=== PATIENT | male | born 1980 | race African-American/Black ===

== ENCOUNTER 2016-10-25 23:38 | Emergency (ER) | payer SELFPAY ==
[~2016-10-25] VITALS: Ht 188 cm; Wt 73.4 kg
[2016-10-26 00:24] VITALS: TEMP 36.8; Ht 188 cm; Wt 73.4 kg
[2016-10-26] MEDS ORDERED: CEFTRIAXONE SOD 350MG/ML 1 GM VIAL IM ONE (01:00)
[2016-10-26] MEDS ORDERED: AZITHROMYCIN 250 MG TAB PO ONE (01:00)
[2016-10-26 01:05] VITALS: BP 112/65; PULSE 76; O2SAT 96
--- NOTE | 2016-10-27 02:34 | EMERGENCY ROOM VISIT NOTE ---
History First contact with patient: 00:31 Chief Complaint: SORETHROAT Stated Complaint: SORETHROAT,INFECTION History of Present Illness The patient is a 35 year old male who presents to the Emergency Room with complaints of sore throat symptoms for the past 3 days. The patient states that he was contacted by a female that he had oral intercourse with, and was informed that she tested positive for gonorrhea today. The patient did not have insertional intercourse with this female, but he is now concerned for a gonorrheal pharyngitis. He does not have fever or chills. No drainage or discharge from the mouth. He does not have other complaints and rates his discomfort a 5/10. Review of Systems More than 10 systems were reviewed and otherwise negative with the exception of history of present illness. Past Medical/Surgical History No chronic medical disease Family History No pertinent family history Social History Smoking Status: Current Every Day Smoker Current/Historical Medications No Active Prescriptions or Reported Meds Allergies Coded Allergies: No Known Allergies (Unverified , 10/26/16) Physical Exam Vital Signs Date Time Temp Pulse Resp B/P Pulse Ox O2 Delivery O2 Flow Rate FiO2 10/26/16 01:05 76 18 112/65 96 10/26/16 00:24 36.8 76 18 112/65 96 Room Air 10/26/16 00:24 98 Room Air Pain Rating (0-10): 0 Physical Exam VITALS: Vitals are noted on the nurse's note and reviewed by myself. Vital signs stable. GENERAL: Well-developed, well-nourished, black male, who is in no acute distress and resting comfortably. Patient is cooperative with the examination. HEAD: Normocephalic atraumatic. MOUTH: Mucous membranes moist. Tonsils are not enlarged. Pharynx mild posterior erythema. No abscess or lesions. NECK: Supple without nuchal rigidity. No lymphadenopathy. No thyromegaly. Cervical spine is nontender. HEART: Regular rate and rhythm without murmurs gallops or rubs. LUNGS: Clear to auscultation bilaterally without wheezes, rales or rhonchi. No retractions or accessory muscle use. Medical Decision & Procedures Medications Administered Medications (Trade) Dose Ordered Sig/Katt Route Start Time Stop Time Status Last Admin Dose Admin Ceftriaxone Sodium (Rocephin Im) 1,000 mg NOW ONCE IM 10/26/16 01:00 10/26/16 01:01 DC 10/26/16 01:00 1,000 MG Azithromycin (Zithromax Tab) 1,000 mg NOW ONCE PO 10/26/16 01:00 10/26/16 01:01 DC 10/26/16 01:00 1,000 MG ED Course Physical exam and history were performed. Nursing notes and EMR were reviewed. Patient appears to have had oral intercourse with a female who tested positive for gonorrhea. Swab was performed for culture and was sent to the lab. The patient was given 1 g IM Rocephin and 1 g oral Zithromax for his symptoms. He was asked to follow with his primary care physician with any ongoing or persisting symptoms. He voiced understanding and rated his discomfort a 0/10 at the time of departure. The chart was completed utilizing [employer] Voice Recognition Software. Grammatical errors, random word insertions, pronoun errors, and incomplete sentences are an occasional consequence of this system due to software limitations, ambient noise, and hardware issues. Any formal questions or concerns about the content, text, or information contained within the body of this dictation should be directly addressed to the provider for clarification. . Medical Decision Differential diagnosis: Etiologies such as viral syndrome, tonsillitis, streptococcal pharyngitis, mononucleosis, peritonsillar abscess, retropharyngeal abscess, otitis, pneumonia , influenza, as well as others were entertained. Impression Primary Impression: Sore throat Departure Information Dispostion Home / Self-Care Condition GOOD Prescriptions No Active Prescriptions or Reported Meds Referrals No Doctor, Assigned (PCP) Forms HOME CARE DOCUMENTATION FORM, IMPORTANT VISIT INFORMATION Patient Instructions My [facility] Additional Instructions You were seen and evaluated today on an emergency basis only. This is not a substitute for, or an effort to provide, complete comprehensive medical care. It is not possible to recognize and treat all injuries or illnesses in a single emergency department visit. For this reason it is recommended that you followup with your primary care physician this week for ongoing care and evaluation. You are welcome to return to the emergency department anytime with new, worsening, or concerning symptoms.
== END 2016-10-26 01:06 | disposition home or self-care (01) ==
LOC: EDBD 23:40 → C.EDB 23:40 → C.EDA 10-26 01:06
DX: J02.9 Acute pharyngitis, unspecified (principal); Z20.2 Contact with and (suspected) exposure to infections with a predominantly sexual mode of transmission; F17.200 Nicotine dependence, unspecified, uncomplicated